=== PATIENT | male | born 1935 | race Two or more races ===

== ENCOUNTER 2019-04-07 12:37 | Emergency (ER) | payer MEDICARE, OTHER ==
[~2019-04-07] VITALS: Ht 182.9 cm; Wt 86.6 kg
[2019-04-07 13:11] VITALS: BP 138/97
[2019-04-07 14:26] LABS: Urine Bacteria MOD /hpf (None Seen); Urine Blood 2+ /uL (Negative); Urine WBC 2702 /hpf (0 - 3); Urine WBC Clumps PRESENT /hpf (None Seen)
[2019-04-07 14:33] LABS: Urine Specific Gravity 1.017 (1.001-1.035)
== END 2019-04-07 15:07 | disposition home or self-care (01) ==
LOC: ER 12:37
DX: N39.0 Urinary tract infection, site not specified (principal); Z46.6 Encounter for fitting and adjustment of urinary device
CPT/HCPCS: 51705; 81001

== ENCOUNTER 2019-05-03 07:36 | Emergency (ER) | payer MEDICARE, OTHER ==
[~2019-05-03] VITALS: Ht 182.9 cm; Wt 89.8 kg
[2019-05-03 09:15] VITALS: BP 142/68
== END 2019-05-03 15:53 | disposition left against medical advice (07) ==
LOC: ER 07:39
DX: Z46.6 Encounter for fitting and adjustment of urinary device (principal); Z53.21 Procedure and treatment not carried out due to patient leaving prior to being seen by health care provider